=== PATIENT | female | born 1970 | race Caucasian/White ===

== ENCOUNTER → 2017-03-22 | Outpatient (REF) | payer BC ==
[~2017-03-22] MED LIST: CATA0.1T OR; FENT1DIS14 TD; FENT1DIS34 TD; IBUP-1114 PO; LITH600C OR; MILKSUS PO; MIRA3350 PO; MULT1TAB18 PO; OMEP40CA2 PO; OXYC-517 PO; TAKES NO MEDS; TRAZ50TA OR
== END ==
LOC: M LAB REF 16:24
PROVIDERS: ATTEND Internal Medicine Medical Oncology
DX: C18.9 Malignant neoplasm of colon, unspecified (principal)

== ENCOUNTER → 2017-03-22 | Outpatient (CLI) | payer BC ==
[~2017-03-22] VITALS: Ht 167.6 cm; Wt 85.3 kg
[~2017-03-22] MED LIST changes: -FENT1DIS34 TD; +LIDOCAINE 2% INJ 100 MG/5 ML SDV (FOR ANES.) As Ordered ONE; +LR 1,000 ML IV SCH; -MILKSUS PO; -MIRA3350 PO; -OMEP40CA2 PO; -OXYC-517 PO; +PROPOFOL 200 MG/20 ML VIAL As Ordered ONE; +fentaNYL 100 MCG/2 ML INJECTION (J3010) As Ordered ONE
--- NOTE | 2017-03-22 16:33 | ROOR ---
Patient Name: Arash Cheng Procedure Date: 03/22/2017 3:26 PM Date of : 1970 Age: 46 Room: [facility] Gender: Female Note Status: Finalized Procedure: Upper GI endoscopy Indications: Dysphagia Providers: Pb Proctor MD Referring MD: REGINA TORREZ, RHEA RAMOS MD Requesting Provider: Medicines: Monitored Anesthesia Care Complications: No immediate complications. Procedure: Pre-Anesthesia Assessment: - Prior to the procedure, a History and Physical was performed, and patient medications and allergies were reviewed. The patient is competent. The risks and benefits of the procedure and the sedation options and risks were discussed with the patient. All questions were answered and informed consent was obtained. Patient identification and proposed procedure were verified by the physician, the nurse and the professor of marketing in the procedure room. Mental Status Examination: alert and oriented. Airway Examination: normal oropharyngeal airway and neck mobility. CV Examination: regular rate and rhythm. Prophylactic Antibiotics: The patient does not require prophylactic antibiotics. Prior Anticoagulants: The patient has taken no previous anticoagulant or antiplatelet agents. ASA Grade Assessment: II - A patient with mild systemic disease. After reviewing the risks and benefits, the patient was deemed in satisfactory condition to undergo the procedure. The anesthesia plan was to use monitored anesthesia care (MAC). Immediately prior to administration of medications, the patient was re-assessed for adequacy to receive sedatives. The heart rate, respiratory rate, oxygen saturations, blood pressure, adequacy of pulmonary ventilation, and response to care were monitored throughout the procedure. The physical status of the patient was re-assessed after the procedure. The Endoscope was introduced through the mouth, and advanced to the second part of duodenum. The upper GI endoscopy was accomplished without difficulty. The patient tolerated the procedure well. Findings: The examined esophagus was normal. The entire examined stomach was normal. The examined duodenum was normal. Impression: - Normal esophagus. - Normal stomach. - Normal examined duodenum. - No specimens collected. Recommendation: - Discharge patient to home. - Resume previous diet. - Continue present medications. - Return to endoscopist at appointment to be scheduled. Pb Proctor MD 03/22/2017 4:32:50 PM Number of Addenda: 0 Note Initiated On: 03/22/2017 3:26 PM Estimated Blood Loss: Estimated blood loss: none.
--- NOTE | 2017-03-22 16:51 | ROOR ---
Patient Name: Arash Cheng Procedure Date: 03/22/2017 3:27 PM Date of : 1970 Age: 46 Room: [facility] Gender: Female Note Status: Finalized Procedure: Colonoscopy Indications: Abnormal CT of the GI tract, On CT pt has a malignant appearing fusion of her descending colon and the left kidney. Providers: Pb Proctor MD Referring MD: REGINA TORREZ, RHEA RAMOS MD Requesting Provider: Medicines: Monitored Anesthesia Care Complications: No immediate complications. Procedure: Pre-Anesthesia Assessment: - Prior to the procedure, a History and Physical was performed, and patient medications and allergies were reviewed. The patient is competent. The risks and benefits of the procedure and the sedation options and risks were discussed with the patient. All questions were answered and informed consent was obtained. Patient identification and proposed procedure were verified by the physician, the nurse and the idea man in the procedure room. Mental Status Examination: alert and oriented. Airway Examination: normal oropharyngeal airway and neck mobility. CV Examination: regular rate and rhythm. Prophylactic Antibiotics: The patient does not require prophylactic antibiotics. Prior Anticoagulants: The patient has taken no previous anticoagulant or antiplatelet agents. ASA Grade Assessment: II - A patient with mild systemic disease. After reviewing the risks and benefits, the patient was deemed in satisfactory condition to undergo the procedure. The anesthesia plan was to use monitored anesthesia care (MAC). Immediately prior to administration of medications, the patient was re-assessed for adequacy to receive sedatives. The heart rate, respiratory rate, oxygen saturations, blood pressure, adequacy of pulmonary ventilation, and response to care were monitored throughout the procedure. The physical status of the patient was re-assessed after the procedure. The Colonoscope [id number] #[id number] was introduced through the anus with the intention of advancing to the cecum. The scope was advanced to the descending colon before the procedure was aborted. Medications were given. The colonoscopy was somewhat difficult due to restricted mobility of the colon and a tortuous colon. The patient tolerated the procedure well. The quality of the bowel preparation was good. Findings: The perianal and digital rectal examinations were normal. A Malignant appearing severe stenosis measuring of unknown length was found in the descending colon and was non-traversed. Biopsies were taken with a cold forceps for histology. With passage of the biopsy forceps through the stricture this would open slightly and a cavity lined by necrotic or malignant tissue was noted beyond. Impression: - Stricture in the descending colon. Biopsied. Recommendation: - Discharge patient to home. - Resume previous diet. - Await pathology results. Pb Proctor MD 03/22/2017 4:50:50 PM Number of Addenda: 0 Note Initiated On: 03/22/2017 3:27 PM Estimated Blood Loss: Estimated blood loss was minimal.
[2017-03-22 17:20] VITALS: BP 135/67
[2017-03-22 18:11] LABS: BASO % 0.3 % (0.0-1.0); EOS # 0.1 K/mm3 (0.0-0.50); LARGE UNSTAINED CELL # 0.2 K/mm3 (0.0-0.4); LARGE UNSTAINED CELL % 2.6 % (0.0-4.0); LYMPH # 1.8 K/mm3 (1.5-4.5); LYMPH % 19.9 % (24.0-44.0); MEAN CORPUSCULAR HEMOGLOBIN 18.8 pg (27.0-33.0); MEAN CORPUSCULAR HGB CONC 28.6 g/dl (32.0-36.5); MEAN CORPUSCULAR VOLUME 65.6 fl (80.0-96.0); MONO # 0.4 K/mm3 (0.0-0.8); NEUTROPHILS # 5.7 K/mm3 (1.8-7.7); NEUTROPHILS % 71.2 % (36.0-66.0); PLATELET COUNT, AUTOMATED 530 k/mm3 (150-450); RED CELL DISTRIBUTION WIDTH 17.2 % (11.5-14.5); WHITE BLOOD COUNT 7.9 K/mm3 (4.0-10.0)
[2017-03-22 18:12] LABS: ALBUMIN 2.9 GM/DL (3.2-5.2); ALBUMIN/GLOBULIN RATIO 0.64 (1.00-1.93); ALKALINE PHOSPHATASE 69 U/L (45-117); ALT/SGPT 8 U/L (12-78); ANION GAP 7 MEQ/L (8-16); AST/SGOT 7 U/L (15-37); BILIRUBIN,TOTAL 0.3 MG/DL (0.2-1.0); BLOOD UREA NITROGEN 9 MG/DL (7-18); CALCIUM LEVEL 8.5 MG/DL (8.5-10.1); CARBON DIOXIDE LEVEL 26 MEQ/L (21-32); CHLORIDE LEVEL 107 MEQ/L (98-107); CREATININE FOR GFR 0.66 MG/DL (0.55-1.02); GLOMERULAR FILTRATION RATE > 60.0 (>58); GLUCOSE, FASTING 88 MG/DL (70-105); POTASSIUM SERUM 3.9 MEQ/L (3.5-5.1); SODIUM LEVEL 140 MEQ/L (136-145); TOTAL PROTEIN 7.4 GM/DL (6.4-8.2)
[2017-03-22 18:19] LABS: CARCINOEMBRYONIC ANTIGEN 9.4 NG/ML (<2.5)
[2017-03-22 18:27] LABS: ERYTHROCYTE SEDIMENTATION RATE 78 mm/hr (0-20)
[2017-03-22 18:28] LABS: ADD MORPHOLOGY? YES
[2017-03-22 18:39] LABS: HYPOCHROMASIA 2+
[2017-03-22 18:40] LABS: ANISOCYTOSIS 1+; MICROCYTOSIS 2+
== END ==
LOC: M OPP 13:58
PROVIDERS: ATTEND Surgery
DX: R93.3 Abnormal findings on diagnostic imaging of other parts of digestive tract (principal); K56.69 Other intestinal obstruction; C18.6 Malignant neoplasm of descending colon; Q43.8 Other specified congenital malformations of intestine; R13.10 Dysphagia, unspecified; R93.422 Abnormal radiologic findings on diagnostic imaging of left kidney; F17.200 Nicotine dependence, unspecified, uncomplicated; R10.9 Unspecified abdominal pain; Z79.899 Other long term (current) drug therapy
CPT/HCPCS: 36415; 43235; 45380; 80053; 82378; 85025; 85652; 86140; 88305; 99156; 99157; J3010

== ENCOUNTER → 2017-04-21 | Outpatient (REF) | payer BC ==
[~2017-04-21] MED LIST changes: +FENT1DIS34 TD; -LIDOCAINE 2% INJ 100 MG/5 ML SDV (FOR ANES.) As Ordered ONE; -LR 1,000 ML IV SCH; +MILKSUS PO; +MIRA3350 PO; +OMEP40CA2 PO; +OXYC-517 PO; +PROC10TA PO; -PROPOFOL 200 MG/20 ML VIAL As Ordered ONE; +ZOFR20TA PO; -fentaNYL 100 MCG/2 ML INJECTION (J3010) As Ordered ONE
== END ==
LOC: M LAB REF 12:00
PROVIDERS: ATTEND Internal Medicine Medical Oncology
DX: C18.9 Malignant neoplasm of colon, unspecified (principal)

== ENCOUNTER → 2017-04-26 | Day surgery (SDC) | payer BC ==
[~2017-04-26] VITALS: Ht 168.9 cm; Wt 81.6 kg
[~2017-04-26] MED LIST changes: +HEPARIN SOD (PORCINE) 5000 UNITS/ML VIAL As Ordered ONE; +LIDOCAINE 1% SDV INJ 30 ML VIAL As Ordered ONE; +LIDOCAINE 2% INJ 100 MG/5 ML SDV (FOR ANES.) As Ordered ONE; +LR 1,000 ML IV ONE; +LR 1,000 ML IV SCH; +MIDAZOLAM INJ 2 MG/2 ML VIAL (J2250) As Ordered ONE; +ONDANSETRON 4MG/2ML VIAL (J2405) As Ordered ONE; -PROC10TA PO; +PROPOFOL 200 MG/20 ML VIAL As Ordered ONE; -ZOFR20TA PO; +fentaNYL 100 MCG/2 ML INJECTION (J3010) As Ordered ONE
[2017-04-26 16:10] VITALS: BP 117/67
--- NOTE | 2017-04-26 17:05 | REP ---
C-ARM VIEW OF THE CHEST: A single C-Arm view of the chest is performed during placement of an Ihjmem-J-Bgob. The tip of the Ofqqvn-G-Ffzn appears to be at the junction of the superior vena cava and right atrium. 9 seconds of fluoroscopy time utilized. Signed by Renzo Navas MD 04/27/2017 07:40 P
--- NOTE | 2017-04-27 19:48 | RO ---
DATE OF PROCEDURE: 04/26/2017 PREOPERATIVE DIAGNOSIS: Stage IV colon cancer for chemotherapy. POSTOPERATIVE DIAGNOSIS: Stage IV colon cancer for chemotherapy. PROCEDURE PERFORMED: Implantation right internal jugular vein Bard port Nvpbll-N-Fjgo with ultrasound and fluoroscopic. The port placed was a Bard port, product code number [id number] and the lot number was [id number]. SURGEON: Pb Proctor MD ANESTHESIA: Local of 1% Xylocaine with monitored anesthesia care. 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 She was noted to have significant adenopathy in the para-aortic area and even up into the mediastinum. She was not felt to be a surgical candidate and chemotherapy was recommended. She is now for placement of an Cdmlcu-G-Kmnp. DESCRIPTION OF PROCEDURE: The patient was placed supine on the operating table. The patient's right neck and upper chest were prepped and draped in a sterile fashion. Several small skin studs along the midline were covered with small OpSites. The patient was placed in a Trendelenburg position. Examination of the right neck was performed with the [facility] ultrasound and the large internal jugular vein was identified. The site was marked and local anesthesia was achieved with 1% Xylocaine. She received sedation from anesthesia. Using ultrasound guidance an 18 gauge needle was inserted through the skin and into the vein without difficulty. There was excellent blood return. The guidewire was passed. The skin was nicked at the wire entry site and the peel-away sheath introducer was passed. The Hcfcna-X-Mhuj catheter was then inserted through the sheath to approximately 30 cm and the sheath was withdrawn. The catheter flushed readily with heparinized saline and blood aspirated readily. The catheter was pulled back to approximately 20 cm and then further back to about 17. The patient was returned to a flat position. Fluoroscopy was performed and the catheter was withdrawn to approximately 14 cm at the skin surface at the neck incision, which appeared to place the tip just about at the juncture of the superior vena cava and the right atrium. Additional local anesthesia was then created in the infraclavicular fossa and an approximately 2-1/2 to 3 cm transverse skin incision was made. A subcutaneous pocket was created to receive the port. Hemostasis was ensured with the electrocautery. The catheter was tunneled down to the port site and the catheter was then cut to length and attached to the port, which had previously been flushed with heparinized saline. The port was placed into the subcutaneous pocket and two #3-0 Vicryl sutures were placed to fix the corners. The skin was approximated with buried sutures of #3-0 Vicryl. The two skin incisions were closed with buried #5-0 Vicryl and Steri-Strips. The port was accessed the final time. Blood aspirated easily and the port was then flushed with 100 units/mL heparin solution. Small OpSites were applied to the two incisions. The patient tolerated the procedure well without apparent complication. She was allowed to awaken and was transported to advanced recovery in stable condition. YAO
== END ==
LOC: M SDC 11:26
PROVIDERS: ATTEND Surgery
DX: C18.6 Malignant neoplasm of descending colon (principal); C79.02 Secondary malignant neoplasm of left kidney and renal pelvis; K59.00 Constipation, unspecified; F17.210 Nicotine dependence, cigarettes, uncomplicated; Z79.899 Other long term (current) drug therapy
CPT/HCPCS: 36561; 76000; C1788; J0690; J2250; J2405; J3010

== ENCOUNTER → 2017-04-27 | Outpatient (CLI) | payer BC ==
[~2017-04-27] MED LIST changes: -HEPARIN SOD (PORCINE) 5000 UNITS/ML VIAL As Ordered ONE; -LIDOCAINE 1% SDV INJ 30 ML VIAL As Ordered ONE; -LIDOCAINE 2% INJ 100 MG/5 ML SDV (FOR ANES.) As Ordered ONE; -LR 1,000 ML IV ONE; -LR 1,000 ML IV SCH; -MIDAZOLAM INJ 2 MG/2 ML VIAL (J2250) As Ordered ONE; -ONDANSETRON 4MG/2ML VIAL (J2405) As Ordered ONE; -PROPOFOL 200 MG/20 ML VIAL As Ordered ONE; -fentaNYL 100 MCG/2 ML INJECTION (J3010) As Ordered ONE
--- NOTE | 2017-04-28 20:22 | REP ---
Whole body PET CT scan: Comparison is the CT of the abdomen and pelvis dated 03/14/2017. Scanning is performed from skull base to the upper thighs. Neck and supraclavicular areas: There is bilaterally symmetric artifactual uptake in the vocal cords. There are no other hypermetabolic foci. Chest: There are no hypermetabolic foci. Specifically there are no mediastinal or hilar foci. Abdomen, pelvis and upper thighs: There is a large mass in the abdomen/retroperitoneum on the left displacing the left kidney medially. There are multifocal zones of hypermetabolic uptake within this mass with the standard uptake value of 11.45. Along the inferomedial margin of this mass is a focus of hypermetabolic uptake measuring approximately 1.5 cm in diameter with a standard uptake value of 18.0. Radio labeling of the left ureter can be seen just posterior to this hypermetabolic focus. This focus could a retroperitoneal node versus direct extension from the adjacent mass. . There are no other hypermetabolic foci. Impression: There are no hypermetabolic foci in the chest, specifically no foci in the mediastinum or della. There are no hypermetabolic foci in the abdomen related to the patient's known abdominal mass. Additionally there is a hypermetabolic focus along the inferomedial margin of this mass, retroperitoneal node versus direct extension from the mass. No other hypermetabolic foci are identified. The studies performed with 10 mCi of F 18 F D G . Signed by Renzo Hughes MD 04/28/2017 08:13 P
== END ==
LOC: M PLARAD 07:25
PROVIDERS: ATTEND Internal Medicine Medical Oncology
DX: C18.6 Malignant neoplasm of descending colon (principal)
CPT/HCPCS: 78815; A9552

== ENCOUNTER → 2017-05-04 | Outpatient (REF) | payer BC ==
[~2017-05-04] MED LIST changes: +PROC10TA PO; +ZOFR20TA PO
== END ==
LOC: M LAB REF 12:59
PROVIDERS: ATTEND Internal Medicine Medical Oncology
DX: C18.9 Malignant neoplasm of colon, unspecified (principal)

== ENCOUNTER → 2017-05-09 | Outpatient (REF) | payer BC ==
[~2017-05-09] MED LIST changes: +NUCY100T3 PO; +PRED10TA2 PO
== END ==
LOC: M LAB REF 09:51
PROVIDERS: ATTEND Internal Medicine Medical Oncology
DX: C18.9 Malignant neoplasm of colon, unspecified (principal); D50.9 Iron deficiency anemia, unspecified

== ENCOUNTER 2017-05-10 09:27 | Outpatient (CLI) | payer BC ==
[~2017-05-10] VITALS: Ht 147.3 cm; Wt 63.0 kg
[~2017-05-10 09:27] MED LIST changes: +ACETAMINOPHEN TAB 650MG DOSE (2X325MG) PO ONE; -NUCY100T3 PO; -PRED10TA2 PO; -PROC10TA PO; +SODIUM CHLORIDE 0.9% INJ 10 ML SYR IV PRN; +SODIUM CHLORIDE 0.9% INJ 10 ML SYR IV SCH; -ZOFR20TA PO; +diphenhydrAMINE 50 MG CAP PO ONE
[2017-05-10] MEDS ORDERED: PROC10TA PO (11:24)
[2017-05-10] MEDS ORDERED: ZOFR20TA PO (11:25)
[2017-09-05] MEDS ORDERED: NUCY100T3 PO (08:28)
[2017-09-05] MEDS ORDERED: PRED10TA2 PO (10:09)
== END 2017-05-10 14:30 | disposition home or self-care (01) ==
LOC: M INFU 09:27
PROVIDERS: ATTEND Internal Medicine Medical Oncology
DX: D50.9 Iron deficiency anemia, unspecified (principal)
CPT/HCPCS: 36430; P9016

== ENCOUNTER → 2017-05-18 | Outpatient (REF) | payer BC ==
[~2017-05-18] MED LIST changes: -ACETAMINOPHEN TAB 650MG DOSE (2X325MG) PO ONE; +NUCY100T3 PO; +PRED10TA2 PO; +PROC10TA PO; -SODIUM CHLORIDE 0.9% INJ 10 ML SYR IV PRN; -SODIUM CHLORIDE 0.9% INJ 10 ML SYR IV SCH; +ZOFR20TA PO; -diphenhydrAMINE 50 MG CAP PO ONE
== END ==
LOC: M LAB REF 12:37
PROVIDERS: ATTEND Internal Medicine Medical Oncology
DX: C18.9 Malignant neoplasm of colon, unspecified (principal)

== ENCOUNTER → 2017-06-01 | Outpatient (REF) | payer BC | LOC: M LAB REF 13:42 | PROVIDERS: ATTEND Internal Medicine Medical Oncology | DX: C18.9 Malignant neoplasm of colon, unspecified (principal) ==

== ENCOUNTER 2018-09-11 11:17 | Emergency (ER) | payer OTHER, BC | END 2018-09-11 13:38 | disposition home or self-care (01) | LOC: M ED 11:17 | DX: S83.411A Sprain of medial collateral ligament of right knee, initial encounter (principal); W18.40XA Slipping, tripping and stumbling without falling, unspecified, initial encounter; Y92.9 Unspecified place or not applicable; Y93.89 Activity, other specified; Y99.9 Unspecified external cause status; M76.891 Other specified enthesopathies of right lower limb, excluding foot; I10 Essential (primary) hypertension; Z72.0 Tobacco use; Z85.038 Personal history of other malignant neoplasm of large intestine; Z88.8 Allergy status to other drugs, medicaments and biological substances | CPT/HCPCS: 73564 ==

== ENCOUNTER → 2020-12-20 | Outpatient (CLI) | payer OTHER, BC ==
[~2020-12-20] MED LIST changes: +MILK120011 PO; -MILKSUS PO; +NUCY100T16 PO; -NUCY100T3 PO; -OMEP40CA2 PO; +OMEP40CA97 PO; -PROC10TA PO; +PROC10TA4 PO; -ZOFR20TA PO; +ZOFR4TAB16 PO
== END ==
LOC: M LABSMTC 11:05
PROVIDERS: ATTEND Anesthesiology
DX: Z01.812 Encounter for preprocedural laboratory examination (principal); Z20.822 Contact with and (suspected) exposure to COVID-19

== ENCOUNTER 2020-12-25 10:11 | Day surgery (SDC) | payer BC ==
[~2020-12-25] VITALS: Ht 170.2 cm; Wt 114.3 kg
[~2020-12-25 10:11] MED LIST changes: +NS 1,000 ML IV ONE
--- OUTSIDE RECORDS SUMMARY | 2020-12-25 10:17 | CCD | Continuity of Care Document ---
Author Author Arash [facility] Organization Unknown Address [address] [place] [address] [place] [address] Phone [phone] Care Team Providers Care Lace Burn Out Tender Name Role Phone [employer]y [employer] AUTM [phone] Problems Description No Information Available Social History Type Date Description Comments Sex Unknown ETOH Use Occasionally consumes alcohol Tobacco Use Start: Unknown Patient is a current smoker, smo kes every day Tobacco Use Start: Unknown Heavy tobacco smoker (more than 10 cigarettes/day) Smoking Status Reviewed: 11/12/20 Heavy tobacco smoker (more than 10 cigarettes/day) Allergies, Adverse Reactions, Alerts Active Allergies Reaction Severity Comments Date Bee Sting 02/07/2020 Chemo 12/04/2020 Medications Active Medications SIG Qnty Indications Ordering Provide r Date No Active Medications Unknown History Medications Albuterol Sulfate HFA 108(90Base) mcg/Act Aerosol 2 puffs every 6 hours as needed for wheeze and cough 8.500gm Alberto Law JR., M.D. 08/26/2020 - 01/02/2019 Prednisone 20mg Tablets 1 tabs three x daily for 5 days 15tabs Alberto Law JR., M.D. - 08/31/2020 Benzonatate 100mg Capsules 1 by mouth every 8 hours as needed cough 30caps Alberto Law JR., M.D. 08/26/2020 - 07/02/2019 Doxycycline Hyclate 100mg Capsules 1 twice a day x 7 days, take with food 14caps J20.9 Alberto thakkar JR., M.D. 08/26/2020 - 07/03/2019 Immunizations Description No Information Available Vital Signs Date Vital Result Comment 12/04/2020 8:49am BP Systolic 145 mmHg BP Diastolic 70 mmHg Heart Rate 78 /min Respiratory Rate 16 /min O2 % BldC Oximetry 99 % Body Temperature 98.7 F Weight 245.00 lb Height 66 inches 5'6" BMI (Body Mass Index) 39.5 kg/m2 Pain Level 1 11/12/2020 11:33am BP Systolic 160 mmHg BP Diastolic 90 mmHg Heart Rate 78 /min Respiratory Rate 18 /min O2 % BldC Oximetry 97 % Body Temperature 98.7 F Weight 245.00 lb Height 66 inches 5'6" BMI (Body Mass Index) 39.5 kg/m2 Pain Level 3 Results Description No Information Available Procedures Description No Information Available Medical Devices Description No Information Available Encounters Type Date Location Provider Dx Diagnosis Office Visit 12/04/2020 8:15a [facility] Darian Sifuentes P J00 Acute nasopharyngitis [common cold] Z20.828 Contact w and exposure to ot h viral communicable diseases Office Visit 11/12/2020 11:30a Main Office REGINA Mobley J06.9 Acute upper respiratory infection, unspecified Z72.0 Tobacco use Z20.828 Contact w and exposure to ot h viral communicable diseases Office Visit 08/26/2020 2:35p [facility] REGINA Mobley J30.9 Allergic rhinitis, unspecified J20.9 Acute bronchitis, unspecifie d Z72.0 Tobacco use Office Visit 07/30/2020 12:30p [facility] REGINA Figueroa H57.12 Ocular pain, left eye Assessments Date Code Description Provider 12/04/2020 J00 Acute nasopharyngitis [common co ld] Daniela Mckinney NP 12/04/2020 Z20.828 Contact with and (nur spected) exposure to other viral communicable diseases Daniela Mckinney NP 11/12/2020 J06.9 Acute upper respiratory infectio n, unspecified REGINA Mobley 11/12/2020 Z72.0 Tobacco use REGINA Mobley 11/12/2020 Z20.828 Contact with and (nur spected) exposure to other viral communicable diseases REGINA Mobley 08/26/2020 J30.9 Allergic rhinitis, unspecified J REGINA Moore 08/26/2020 J20.9 Acute bronchitis, unspecified Ja REGINA Crum 08/26/2020 Z72.0 Tobacco use REGINA Mobley 07/30/2020 H57.12 Ocular pain, left eye REGINA Figueroa Plan of Treatment No Information Available Functional Status Description No Information Available Mental Status Description No Information Available Referrals Description No Information Available
--- OUTSIDE RECORDS SUMMARY | 2020-12-25 10:17 | CCD | Continuity of Care Document ---
Author Author Arash VENEGAS Organization Unknown Address [address] [place] [address] [place] [address] Phone [phone] Care Team Providers Care Ordnance Equipment Worker Name Role Phone [employer]y [employer] AUTM [phone] Problems Description No Information Available Social History [...] Reaction Severity Comments Date Bee Sting 02/07/2020 Medications Active Medications SIG Qnty Indications Ordering [...] Available Vital Signs Date Vital Result Comment 11/12/2020 11:33am BP Systolic 160 mmHg BP Diastolic 90 mmHg Heart Rate 78 /min Respiratory Rate 18 /min O2 % BldC Oximetry 97 % Body Temperature 98.7 F Weight 245.00 lb Height 66 inches 5'6" BMI (Body Mass Index) 39.5 kg/m2 Pain Level 3 08/26/2020 1:54pm BP Systolic 130 mmHg BP Diastolic 78 mmHg Heart Rate 97 /min Respiratory Rate 20 /min O2 % BldC Oximetry 99 % Body Temperature 98.7 F Weight 245.00 lb Height 66 inches 5'6" BMI (Body Mass Index) 39.5 kg/m2 Pain Level 3 Results Description No Information Available Procedures Description No Information Available Medical Devices Description No Information Available Encounters Type Date Location Provider Dx Diagnosis Office Visit 11/12/2020 11:30a Main Office REGINA Mobley J06.9 Acute upper respiratory infection, unspecified Z72.0 Tobacco use Z20.828 Contact w and exposure to ot h viral communicable diseases Office Visit 08/26/2020 2:35p [facility] REGINA Mobley J30.9 Allergic rhinitis, unspecified J20.9 Acute bronchitis, unspecifie d Z72.0 Tobacco use Office Visit 07/30/2020 12:30p [facility] REGINA Figueroa H57.12 Ocular pain, left eye Assessments Date Code Description Provider 11/12/2020 J06.9 Acute upper respiratory infectio n, unspecified REGINA Mobley 11/12/2020 Z72.0 Tobacco use REGINA Mobley 11/12/2020 Z20.828 Contact with and (nur spected) exposure to other viral communicable diseases REGINA Mobley 08/26/2020 J30.9 Allergic rhinitis, unspecified J REGINA Moore 08/26/2020 J20.9 Acute bronchitis, unspecified REGINA Brink 08/26/2020 Z72.0 Tobacco use REGINA Mobley 07/30/2020 H57.12 Ocular pain, left eye REGINA Figueroa Plan of Treatment No Information Available Functional Status Description No Information Available Mental Status Description No Information Available Referrals Description No Information Available
--- OUTSIDE RECORDS SUMMARY | 2020-12-25 10:17 | CCD | Continuity of Care Document ---
Author Author Arash OLIVERA M.D. Organization Unknown Address [address] [facility], [address] [place] [address] Phone [phone] Care Team Providers Care Vice President Payer Name Role Phone Marcus Sanon M.D. AUTM [phone] AUTM Unavailable No PCP AUTM Unavailable Problems Description No Information Available Social History Type Date Description Comments Sex Unknown ETOH Use Occasionally consumes alcohol Recreational Drug Use Denies Drug Use Tobacco Use Start: Unknown Patient is a current smoker, smo kes every day 1 PPD FOR 25 YEARS Allergies, Adverse Reactions, Alerts Active Allergies Reaction Severity Comments Date Oxaliplatin ANAPHLALAXIS 02/07/2019 Adhesives Contact dermatitis 9 Inactive Allergies NKDA 03/21/2017 Medications Description No Active Medications Immunizations Description No Information Available Vital Signs Date Vital Result Comment 12/15/2020 2:29pm BP Systolic 132 mmHg BP Diastolic 70 mmHg Height 67.5 inches 5'7.50" Weight 260.38 lb BMI (Body Mass Index) 40.2 kg/m2 [place] Body Weight 135 lb Weight 118.106 kg BSA (Body Surface Area) 2.27 m2 02/14/2019 9:33am BP Systolic 132 mmHg LA BP Diastolic 96 mmHg LA Height 67.5 inches 5'7.50" Weight 234.00 lb BMI (Body Mass Index) 36.1 kg/m2 [place] Body Weight 135 lb Weight 106.142 kg BSA (Body Surface Area) 2.17 m2 Results Description No Information Available Procedures Description No Information Available Medical Devices Description No Information Available Encounters Description No Information Available Assessments Description No Information Available Plan of Treatment 02/14/2019 - Ismael Veras NP* Z48.02 Encounter for removal of sutures* Comments:* Sutures removed, patient tolerated well. Keep area clean and dry.Gentle cleansing with mild soap and pat dry. Follow up as needed. Functional Status Description No Information Available Mental Status Description No Information Available Referrals Refer to Reason for Referral Status Appt Date Pb Olivera M.D. EGD Created 10/29/2020 [facility] [address] [place] [phone]
--- OUTSIDE RECORDS SUMMARY | 2020-12-25 10:17 | CCD | Continuity of Care Document ---
Author Author Arash VENEGAS Organization Unknown Address [address] [place] [address] [place] [address] Phone [phone] Care Team Providers Care Residential Child Care Counselor Name Role Phone [employer]y [employer] AUTM [phone] Problems Description No Information Available Social History [...]
--- OUTSIDE RECORDS SUMMARY | 2020-12-25 10:17 | CCD | Continuity of Care Document ---
Author Author Arash [facility] REP Organization Unknown Address [address] [place] [address] [place] [address] Phone [phone] Care Team Providers Care Requirements Engineer Name Role Phone Corey [employer] AUTM [phone] Problems Description No Information Available Social History [...]
--- OUTSIDE RECORDS SUMMARY | 2020-12-25 10:18 | CCD ---
Author Author [facility] Organization [facility] Address Unknown Phone Unavailable Care Team Providers Care Forepart Reducer Name Role Phone Margaret Tamayo Unavailable Unavailable Margaret Tamayo Unavailable Unavailable Margaret Tamayo Unavailable Unavailable Margaret Tamayo Unavailable Unavailable Margaret Tamayo Unavailable Unavailable Margaret Tamayo Unavailable Unavailable Margaret Tamayo Unavailable Unavailable Margaret Tamayo Unavailable Unavailable Margaret Tamayo Unavailable Unavailable Margaret Tamayo Unavailable Unavailable Kraeger, R Amy PA Unavailable Unavailable Kraeger, R Amy PA Unavailable Unavailable Kraeger, R Amy PA Unavailable Unavailable Kraeger, R Amy PA Unavailable Unavailable Kraeger, R Amy PA Unavailable Unavailable Kraeger, R Amy PA Unavailable Unavailable Kraeger, R Amy PA Unavailable Unavailable Kraeger, R Amy PA Unavailable Unavailable Kraeger, R Amy PA Unavailable Unavailable Kraeger, R Amy PA Unavailable Unavailable Kraeger, R Amy PA Unavailable Unavailable Kraeger, R Amy PA Unavailable Unavailable Kraeger, R Amy PA Unavailable Unavailable Kraeger, R Amy PA Unavailable Unavailable Kraeger, R Amy PA Unavailable Unavailable Kraeger, R Amy PA Unavailable Unavailable Kraeger, R Amy PA Unavailable Unavailable Kraeger, R Amy PA Unavailable Unavailable Kraeger, R Amy PA Unavailable Unavailable Kraeger, R Amy PA Unavailable Unavailable Kraeger, R Amy PA Unavailable Unavailable Kraeger, R Amy PA Unavailable Unavailable Kraeger, R Amy PA Unavailable Unavailable Kraeger, R Amy PA Unavailable Unavailable Kraeger, R Amy PA Unavailable Unavailable Kraeger, R Amy PA Unavailable Unavailable Kraeger, R Amy PA Unavailable Unavailable Kraeger, R Amy PA Unavailable Unavailable Kraeger, R Amy PA Unavailable Unavailable Kraeger, R Amy PA Unavailable Unavailable Kraeger, R Amy PA Unavailable Unavailable Kraeger, R Amy PA Unavailable Unavailable Kraeger, R Amy PA Unavailable Unavailable Kraeger, R Amy PA Unavailable Unavailable Kraeger, R Amy PA Unavailable Unavailable Kraeger, R Amy PA Unavailable Unavailable Kraeger, R Amy PA Unavailable Unavailable Kraeger, R Amy PA Unavailable Unavailable Kraeger, R Amy PA Unavailable Unavailable Kraeger, R Amy PA Unavailable Unavailable Kraeger, R Amy PA Unavailable Unavailable DARRYL PRADO MD Unavailable Unavailable DARRYL PRADO MD Unavailable Unavailable DARRYL PRADO MD Unavailable Unavailable DARRYL PRADO MD Unavailable Unavailable DARRYL PRADO MD Unavailable Unavailable DARRYL PRADO MD Unavailable Unavailable JOHAN, DARRYL CRUZ MD Unavailable Unavailable JOHAN, DARRYL CRUZ MD Unavailable Unavailable JOHAN, DARRYL CRUZ MD Unavailable Unavailable JOHAN, DARRYL CRUZ MD Unavailable Unavailable JOHAN, DARRYL CRUZ MD Unavailable Unavailable JOHAN, DARRYL CRUZ MD Unavailable Unavailable JOHAN, DARRYL CRUZ MD Unavailable Unavailable JOHAN, DARRYL CRUZ MD Unavailable Unavailable JOHAN, DARRYL CRUZ MD Unavailable Unavailable JOHAN, DARRYL CRUZ MD Unavailable Unavailable JOHAN, DARRYL CRUZ MD Unavailable Unavailable JOHAN, DARRYL CRUZ MD Unavailable Unavailable JOHAN, DARRYL CRUZ MD Unavailable Unavailable JOHAN, DARRYL CRUZ MD Unavailable Unavailable JOHAN, DARRYL CRUZ MD Unavailable Unavailable JOHAN, DARRYL CRUZ MD Unavailable Unavailable JOHAN, DARRYL CRUZ MD Unavailable Unavailable JOHAN, DARRYL CRUZ MD Unavailable Unavailable JOHAN, DARRYL CRUZ MD Unavailable Unavailable JOHAN, DARRYL CRUZ MD Unavailable Unavailable JOHAN, DARRYL CRUZ MD Unavailable Unavailable JOHAN, DARRYL CRUZ MD Unavailable Unavailable JOHAN, DARRYL CRUZ MD Unavailable Unavailable JOHAN, DARRYL CRUZ MD Unavailable Unavailable JOHAN, DARRYL CRUZ MD Unavailable Unavailable JOHAN, DARRYL CRUZ MD Unavailable Unavailable JOHAN, DARRYL CRUZ MD Unavailable Unavailable JOHAN, DARRYL CRUZ MD Unavailable Unavailable JOHAN, DARRYL CRUZ MD Unavailable Unavailable JOHAN, DARRYL CRUZ MD Unavailable Unavailable JOHAN, DARRYL CRUZ MD Unavailable Unavailable JOHAN, DARRYL CRUZ MD Unavailable Unavailable JOHAN, DARRYL CRUZ MD Unavailable Unavailable JOHAN, DARRYL CRUZ MD Unavailable Unavailable JOHANDARRYL MD Unavailable Unavailable JOHAN, DARRYL CRUZ MD Unavailable Unavailable JOHAN, DARRYL CRUZ MD Unavailable Unavailable JOHAN, DARRYL CRUZ MD Unavailable Unavailable JOHAN, DARRYL CRUZ MD Unavailable Unavailable JOHAN, DARRYL CRUZ MD Unavailable Unavailable JOHAN, DARRYL CRUZ MD Unavailable Unavailable JOHAN, DARRYL CRUZ MD Unavailable Unavailable JOHAN, DARRYL CRUZ MD Unavailable Unavailable JOHAN, DARRYL CRUZ MD Unavailable Unavailable JOHAN, DARRYL CRUZ MD Unavailable Unavailable JOHAN, DARRYL CRUZ MD Unavailable Unavailable JOHAN, DARRYL CRUZ MD Unavailable Unavailable JOHAN, DARRYL CRUZ MD Unavailable Unavailable JOHAN, DARRYL CRUZ MD Unavailable Unavailable JOHAN, DARRYL CRUZ MD Unavailable Unavailable JOHAN, DARRYL CRUZ MD Unavailable Unavailable JOHAN, DARRYL CRUZ MD Unavailable Unavailable JOHAN, DARRYL CRUZ MD Unavailable Unavailable JOHAN, DARRYL CRUZ MD Unavailable Unavailable JOHAN, DARRYL CRUZ MD Unavailable Unavailable JOHAN, DARRYL CRUZ MD Unavailable Unavailable JOHAN, DARRYL CRUZ MD Unavailable Unavailable JOHAN, DARRYL CRUZ MD Unavailable Unavailable JOHAN, DARRYL CRUZ MD Unavailable Unavailable JOHAN, DARRYL CRUZ MD Unavailable Unavailable JOHAN, DARRYL CRUZ MD Unavailable Unavailable JOHAN, DARRYL CRUZ MD Unavailable Unavailable JOHAN, DARRYL CRUZ MD Unavailable Unavailable JOHAN, DARRYL CRUZ MD Unavailable Unavailable JOHAN, DARRYL CRUZ MD Unavailable Unavailable JOHAN, DARRYL CRUZ MD Unavailable Unavailable JOHAN, DARRYL CRUZ MD Unavailable Unavailable RING, K ZULY PA Unavailable Unavailable RING, K ZULY PA Unavailable Unavailable RING, K ZULY PA Unavailable Unavailable RING, K ZULY PA Unavailable Unavailable RING, K ZULY PA Unavailable Unavailable RING, K ZULY PA Unavailable Unavailable RING, K ZULY PA Unavailable Unavailable RING, K ZULY PA Unavailable Unavailable RING, K ZULY PA Unavailable Unavailable RING, K ZULY PA Unavailable Unavailable RING, K ZULY PA Unavailable Unavailable RING, K ZULY PA Unavailable Unavailable RING, K ZULY PA Unavailable Unavailable RING, K ZULY PA Unavailable Unavailable RING, K ZULY PA Unavailable Unavailable RING, K ZULY PA Unavailable Unavailable RING, K ZUYL PA Unavailable Unavailable RING, K ZULY PA Unavailable Unavailable RING, K ZULY PA Unavailable Unavailable RING, K ZULY PA Unavailable Unavailable RING, K ZULY PA Unavailable Unavailable Flores, Daniela BREAD JOCKEY Unavailable Unavailable Flores, Daniela BREAD JOCKEY Unavailable Unavailable Flores, Daniela BREAD JOCKEY Unavailable Unavailable Flores, Daniela BREAD JOCKEY Unavailable Unavailable Flores, Daniela BREAD JOCKEY Unavailable Unavailable Flores, Daniela BREAD JOCKEY Unavailable Unavailable Flores, Daniela BREAD JOCKEY Unavailable Unavailable Flores, Daniela BREAD JOCKEY Unavailable Unavailable Flores, Daniela BREAD JOCKEY Unavailable Unavailable Flores, Daniela BREAD JOCKEY Unavailable Unavailable Flores, Daniela BREAD JOCKEY Unavailable Unavailable Ferraro, [place] Chrissie PA Unavailable Unavailable Ferraro, [place] Chrissie PA Unavailable Unavailable Ferraro, [place] Chrissie PA Unavailable Unavailable Ferraro, [place] Chrissie PA Unavailable Unavailable Ferraro, [place] Chrissie PA Unavailable Unavailable Ferraro, [place] Chrissie PA Unavailable Unavailable Ferraro, [place] Chrissie PA Unavailable Unavailable Ferraro, [place] Chrissie PA Unavailable Unavailable Ferraro, [place] Chrissie PA Unavailable Unavailable Ferraro, [place] Chrissie PA Unavailable Unavailable Re-disclosure Warning The records that you are about to access may contain information from federally-assisted alcohol or drug abuse programs. If such information is present, then the following federally mandated warning applies: This information has been disclosed to you from records protected by federal confidentiality rules (42 CFR part 2). The federal rules prohibit you from making any further disclosure of this information unless further disclosure is expressly permitted by the written consent of the person to whom it pertains or as otherwise permitted by 42 CFR part 2. A general authorization for the release of medical or other information is NOT sufficient for this purpose. The Federal rules restrict any use of the information to criminally investigate or prosecute any alcohol or drug abuse patient.The records that you are about to access may contain highly sensitive health information, the redisclosure of which is protected by Article 27-F of the [facility] Public Health law. If you continue you may have access to information: Regarding HIV / AIDS; Provided by facilities licensed or operated by the [facility] Office of Mental Health; or Provided by the [facility] Office for People With Developmental Disabilities. If such information is present, then the following [facility] mandated warning applies: This information has been disclosed to you from confidential records which are protected by state law. State law prohibits you from making any further disclosure of this information without the specific written consent of the person to whom it pertains, or as otherwise permitted by law. Any unauthorized further disclosure in violation of state law may result in a fine or penitentiary sentence or both. A general authorization for the release of medical or other information is NOT sufficient authorization for further disc losure. Family History Family Member Name Family Member Gender Family Member Status Date o f Status Description Data Source(s) Unknown Male Problem [facility] ([facility]) Unknown [facility] () Unknown Male Problem [facility] ([facility] () Encounters Encounter Providers Location Date Indications Data Source(s ) Outpatient Attender: Daniela woodruff 12/04/2020 07:15:00 AM EST [facility] ([facility]) Outpatient Attender: Chrissie diaz 11/12/2020 10:30:00 AM EST [facility] ([facility]) Outpatient Attender: NANCY PRADO MDReferrer: Chris TAPIA _[id number] 10/22/2020 12:40:40 PM EST [facility] Outpatient Attender: NANCY PRADO MDReferrer: Chris TAPIA _[id number] 10/22/2020 09:55:37 AM EST [facility] Outpatient Attender: NANCY PRADO MDReferrer: Chris TAPIA _[id number] 10/22/2020 09:18:05 AM EST [facility] Outpatient Attender: NANCY PRADO MDReferrer: Chris TAPIA _[id number] 10/21/2020 08:29:33 AM EST [facility] Outpatient Attender: NANCY PRADO MDReferrer: Chris TAPIA _[id number] 10/17/2020 06:23:49 AM EST [facility] Outpatient Attender: NANCY PRADO MDReferrer: Chris TAPIA [id number] 10/08/2020 01:12:31 PM EST [facility] Outpatient Attender: NANCY PRADO MD 09/02/2020 10:27:00 AM EDT [facility] Outpatient Attender: NANCY PRADO MDReferrer: Chris TAPIA _[id number] 08/31/2020 08:43:48 PM EDT [facility] Outpatient Attender: Chrissie Perdomo Prim joe 08/26/2020 02:35:00 PM EDT [facility] ([facility]) Outpatient Attender: NANCY PRADO MDReferrer: Chris TAPIA _[id number] 08/19/2020 03:01:34 PM EDT [facility] Outpatient Attender: NANCY ECHOLSeferrer: Chris TAPIA _[id number] 08/14/2020 02:25:23 PM EDT [facility] Outpatient Attender: ZULY Perdomo Primary 07/30/2020 12:30:00 PM EDT MED[facility] ([facility]) Outpatient Attender: ZULY Perdomo Primary 02/07/2020 12:00:00 PM EDT [facility] ([facility], [facility]) Medications Medication Brand Name Start Date Product Form Dose Route Admi nistrative Instructions Pharmacy Instructions Status Indications Reaction Description Data Source(s) No Active Medications 11/12/2020 12:00:00 AM EST active [facility] ([facility]) Prednisone 20 MG Oral Tablet Prednisone 08/26/2020 12:00:00 AM EDT completed [facility] ([facility]) benzonatate 100 MG Oral Capsule Benzonatate 08/26/2020 12:00:00 AM EDT ORAL completed [facility] ([facility]) 60 ACTUAT Albuterol 0.09 MG/ACTUAT Metered Dose Inhaler Albu terol Sulfate HFA 08/26/2020 12:00:00 AM EDT RESPIRATORY completed [facility] ([facility]) doxycycline hyclate 100 MG Oral Capsule Doxycycline Hyclate 08/26/2020 12:00:00 AM EDT completed [facility] ([facility]) Insurance Providers Payer name Policy type / Coverage type Policy ID Covered alliance party ID Covered alliance party's relationship to diaz Policy Diaz Plan Information [employer] [place] P[place] 302/307 [id number] SP [id number] [facility] [id number] SP [id number] [employer] [place] PPO 302/307 [id number] SP [id number] [employer] [place] PPO 302/307 [id number] SP [id number] [employer] [place] PPO 302/307 [id number] SP [id number] [employer] Primary [id number] [employer] Primary [id number] MVP Health Maintenance Organization (HMO) [id number] Self [id number] MVP PI PI MVP [id number] Lexi [id number] [facility] () Workers Compensation [id number] Self [id number] [facility] () Workers Compensation [id number] Self [id number] [facility] O [id number] O [id number] EXCELLUS BCBS B [id number] S [id number] [id number] EXCELLUS H [id number] Self [id number] [facility] O UNAVAILABLE S UNAVAILABLE EXCELLUS BCBS PI PI EXCELLUS BCBS [id number] Lexi VYA [id number] [place] Commercial [id number] Self [id number] Excell[employer] BCBS Health Maintenance Organization (HMO) [id number] Self [id number] EXCELLUS BCBS B [id number] S [id number] [id number] [employer] Health Maintenance Organization (HMO) [id number] Self [id number] [employer] Health Maintenance Organization (HMO) [id number] Self [id number] [employer] [place] PPO 302/307 [id number] SP [id number] BS Of [facility] Health Maintenance Organization (HMO) [id number] Self [id number] [facility] (HMO) [id number] Self [id number] [employer] [place] PPO 302/307 [id number] SP [id number] [employer] [place] PPO 302/307 [id number] SP [id number] PROGRESSIVE CASUALTY [id number] SP [id number] MEDICAID [facility] [id number] SP [id number] BLUE CROSS [id number] SP [id number] MEDICAID [id number] SP [id number] SELF PAY UNAVAILABLE SP UNAVAILA BLE SELF PAY - PENDING UNAVAILABLE UNAVAILABLE MEDICAID [facility] [id number] SP [id number] Results ID Date Data Source [id number] 12/21/2020 11:00:00 AM EST [facility] Name Value Range Interpretation Code Description Data Sunita rce(s) Supporting Document(s) SARS coronavirus 2 [facility]ed [facility] This lab was ordered by [facility] and reported by [facility]. ID Date Data Source [id number] 12/04/2020 12:00:00 AM EST [facility] Name Value Range Interpretation Code Description Data Sunita rce(s) Supporting Document(s) SARS coronavirus 2 Ag Negative [facility] This lab was ordered by [facility] and reported by [facility]. ID Date Data Source [id number] 10/22/2020 12:50:23 PM EST [facility] Name Value Range Interpretation Code Description Data Sunita rce(s) Supporting Document(s) *Follow Up Visit TAYA v1 [facility] [id number] [file] [id number] ID Date Data Source [id number] 10/22/2020 01:33:00 PM EST [facility] CT ABDOMEN AND PELVIS WITH IV CONTRAST I NDICATION: Colon cancer post hemicolectomy and nephrectomy. Assess recurrence.COMPARISON: Most recently 07/13/2019IV CONTRAST: 100 mL Omnipaque 300 One or more of the following dose reduction techniques were utilized in effectively lowering the radiation dose for this examination: Automated Exposure Control, Adjustment of the mA and/or kV according to patient size, or Iterative reconstruction. FINDINGS: LUNG BASES: Minimal left base atelectasis/scar. No pleural effusions. LIVER: Unremarkable liver and gallbladder. SPLEEN: Normal. PANCREAS: Normal. ADRENALS: Normal bilaterally. KIDNEYS/: Centimeter-sized hypodensity projecting from the posterior right mid kidney similar to prior. Left nephrectomy. Grossly normal bladder. Uterus removed. No abnormally enlarged adnexal structures. Resolution of right adnexal cyst since prior. BOWEL/GI: Sigmoid to transverse colon anastomosis. No adjacent mass. Normal appendix. No obstruction, free air, or free fluid. No omental or peritoneal tumor is identified. Broad necked ventral hernias and supraumbilical and umbilical locations with some areas of bowel prolapse. No strangulation. Similar appearance to prior. NODES/RETROPERITONEUM: No adenopathy. SKELETAL: Mild to moderate degenerative disc change. No skeletal metastases. IMPRESSION: Resection changes as noted above. No acute abnormality or significant change. No metastatic disease. Professional interpretation performed at [facility] . Name Value Range Interpretation Code Description Data Sunita rce(s) Supporting Document(s) Procedure Vital Signs ID Date Data Source UNK Name Value Range Interpretation Code Description Data Source(s) Body surface area Derived from formula 2.27 m2 2.27 m2 [facility] ([facility]) Body weight 118.106 kg 118.106 kg [facility] ([facility]) Rector body weight 135 [lb_av] 135 [lb_av] [facility] T ([facility]) Body mass index (BMI) [Ratio] 40.2 kg/m2 40.2 k g/m2 [facility] ([facility]) Body weight 260.38 [lb_av] 260.38 [lb_av] [facility] ([facility]) Body height 67.5 [in_i] 67.5 [in_i] [facility] ([facility]) 5'7.50" Diastolic blood pressure 70 mm[Hg] 70 mm[Hg] [facility] ([facility]) Systolic blood pressure 132 mm[Hg] 132 [facility] Body mass index (BMI) [Ratio] 39.5 kg/m2 39.5 k g/m2 [facility]) Body height 66 [in_i] 66 [in_i] [facility], [facility]) 5'6" Body weight 245.00 [lb_av] 245.00 [lb_av] [facility] T ([facility], [facility]) Body temperature 98.7 [degF] 98.7 [degF] [facility] ([facility], [facility]) Oxygen saturation in Arterial blood by Pulse oximetry 99 % 99 % [facility] ([facility], [facility]) Respiratory rate 16 /min 16 /min [facility] ( [facility], [facility]) Heart rate 78 /min 78 /min [facility] ([facility], [facility]) Diastolic blood pressure 70 mm[Hg] 70 mm[facility]] [facility], [facility]) Systolic blood pressure 145 mm[Hg] 145 mm[Hg] [facility], [facility]) Body mass index (BMI) [Ratio] 39.5 kg/m2 39.5 k g/m2 [facility] ([facility], [facility]) Body height 66 [in_i] 66 [in_i] [facility] ([facility], [facility]) 5'6" Body weight 245.00 [lb_av] 245.00 [lb_av] MED[facility] T ([facility], [facility]) Body temperature 98.7 [degF] 98.7 [degF] [facility]) Oxygen saturation in Arterial blood by Pulse oximetry 97 % 97 % [facility] ([facility], [facility]) Respiratory rate 18 /min 18 /min [facility] ( [facility], [facility]) Heart rate 78 /min 78 /min [facility] ([facility], [facility]) Diastolic blood pressure 90 mm[Hg] 90 mm[facility]] [facility], [facility]) Systolic blood pressure 160 mm[Hg] 160 mm[Hg] [facility], [facility]) Body mass index (BMI) [Ratio] 39.5 kg/m2 39.5 k g/[facility]2 [facility], [facility]) Body height 66 [in_i] 66 [in_i] [facility] ([facility], [facility]) 5'6" Body weight 245.00 [lb_av] 245.00 [lb_av] MEDEN T ([facility], [facility]) Body temperature 98.7 [degF] 98.7 [degF] [facility] ([facility], [facility]) Oxygen saturation in Arterial blood by Pulse oximetry 99 % 99 % [facility] ([facility], [facility]) Respiratory rate 20 /min 20 /min [facility] ( [facility], [facility]) Heart rate 97 /min 97 /min [facility] ([facility], [facility]) Diastolic blood pressure 78 mm[Hg] 78 mm[Hg] [facility] ([facility], [facility]) Systolic blood pressure 130 mm[Hg] 130 mm[facility]Hg] [facility], [facility]) Body mass index (BMI) [Ratio] 40.3 kg/m2 40.3 k g/m2 [facility], [facility]) Body height 66 [in_i] 66 [in_i] [facility]) 5'6" Body weight 250.00 [lb_av] 250.00 [lb_av] MEDEN T ([facility], [facility]) Body temperature 98.7 [degF] 98.7 [degF] [facility] ([facility], [facility]) Oxygen saturation in Arterial blood by Pulse oximetry 96 % 96 % [facility] ([facility], [facility]) Respiratory rate 18 /min 18 /min [facility] ( [facility], [facility]) Heart rate 78 /min 78 /min [facility] ([facility], [facility]) Diastolic blood pressure 100 mm[Hg] 100 mm[Hg] [facility]) Systolic blood pressure 150 mm[Hg] 150 mm[facility]Hg] [facility] [facility] [place]) Body mass index (BMI) [Ratio] 38.7 kg/m2 38.7 k g/m2 [facility] ([facility], [facility]) Body height 66 [in_i] 66 [in_i] [facility] ([facility], [facility]) 5'6" Body weight 240.00 [lb_av] 240.00 [lb_av] [facility] ([facility], [facility] [place] [facility]) Body temperature 98.9 [degF] 98.9 [degF] [facility] ([facility], [facility] [place] [facility]) Oxygen saturation in Arterial blood by Pulse oximetry 95 % 95 % [facility] ([facility], [facility] [place]) Respiratory rate 18 /min 18 /min [facility] ( [facility], [facility] [place]) Heart rate 74 /min 74 /min [facility] ([facility], [facility] [place] [facility]) Diastolic blood pressure 100 mm[Hg] 100 mm[Hg] [facility] ([facility], [facility] [place] [facility]) Systolic blood pressure 152 mm[Hg] 152 mm[Hg] [facility] ([facility], [facility] [place])
[2020-12-25] MEDS ORDERED: LIDOCAINE 2% 100MG/5ML SDV (FOR ANES.) As Ordered ONE (11:00)
[2020-12-25] MEDS ORDERED: propofoL 500 MG/50 ML VIAL As Ordered ONE (11:00)
[2020-12-25] MEDS ORDERED: propofoL 200 MG/20 ML VIAL As Ordered ONE (11:56)
--- NOTE | 2020-12-25 12:03 | ROOR ---
Patient Name: Arash Cheng Procedure Date: 12/25/2020 11:07 AM Date of : 1970 Age: 50 Room: [facility] Gender: Female Note Status: Finalized Procedure: Upper GI endoscopy Indications: Nausea with vomiting Providers: Pb Proctor MD Referring MD: Pb Sanon Md Requesting Provider: Medicines: Monitored Anesthesia Care Complications: No immediate complications. Procedure: Pre-Anesthesia Assessment: - Prior to the procedure, a History and Physical was performed, and patient medications and allergies were reviewed. The patient is competent. The risks and benefits of the procedure and the sedation options and risks were discussed with the patient. All questions were answered and informed consent was obtained. Patient identification and proposed procedure were verified by the physician, the nurse and the lead security officer in the procedure room. Mental Status Examination: alert and oriented. Prophylactic Antibiotics: The patient does not require prophylactic antibiotics. Prior Anticoagulants: The patient has taken no previous anticoagulant or antiplatelet agents. ASA Grade Assessment: II - A patient with mild systemic disease. After reviewing the risks and benefits, the patient was deemed in satisfactory condition to undergo the procedure. The anesthesia plan was to use monitored anesthesia care (MAC). Immediately prior to administration of medications, the patient was re-assessed for adequacy to receive sedatives. The heart rate, respiratory rate, oxygen saturations, blood pressure, adequacy of pulmonary ventilation, and response to care were monitored throughout the procedure. The physical status of the patient was re-assessed after the procedure. The Endoscope was introduced through the mouth, and advanced to the second part of duodenum. The upper GI endoscopy was accomplished without difficulty. The patient tolerated the procedure well. Findings: The examined esophagus was normal. Localized mild inflammation characterized by granularity was found in the prepyloric region of the stomach. The first portion of the duodenum and second portion of the duodenum were normal. Impression: - Normal esophagus. - Acute gastritis. - Normal first portion of the duodenum and second portion of the duodenum. - No specimens collected. Recommendation: - Discharge patient to home. - Resume previous diet. - Continue present medications. Procedure Code(s): --- Professional --- 99296, Esophagogastroduodenoscopy, flexible, transoral; diagnostic, including collection of specimen(s) by brushing or washing, when performed (separate procedure) Diagnosis Code(s): --- Professional --- K29.00, Acute gastritis without bleeding R11.2, Nausea with vomiting, unspecified CPT copyright 2019 [employer]. All rights reserved. The codes documented in this report are preliminary and upon outpatient coder review may be revised to meet current compliance requirements. Pb Proctor MD Pb Proctor MD 12/25/2020 12:03:20 PM Electronically signed by Pb Proctor MD Number of Addenda: 0 Note Initiated On: 12/25/2020 11:07 AM Estimated Blood Loss: Estimated blood loss: none.
--- NOTE | 2020-12-25 12:13 | ROOR ---
Patient Name: Arash Cheng Procedure Date: 12/25/2020 11:08 AM Date of : 1970 Age: 50 Room: [facility] Gender: Female Note Status: Finalized Procedure: Colonoscopy Indications: High risk colon cancer surveillance: Personal history of colon cancer, Last colonoscopy: 2016 Providers: Pb Proctor MD Referring MD: Pb Sanon Md Requesting Provider: Medicines: Monitored Anesthesia Care Complications: No immediate complications. Procedure: Pre-Anesthesia Assessment: - Prior to the procedure, a History and Physical was performed, and patient medications and allergies were reviewed. The patient is competent. The risks and benefits of the procedure and the sedation options and risks were discussed with the patient. All questions were answered and informed consent was obtained. Patient identification and proposed procedure were verified by the physician, the nurse and the rn clinical resource in the procedure room. Mental Status Examination: alert and oriented. Airway Examination: normal oropharyngeal airway and neck mobility. Prophylactic Antibiotics: The patient does not require prophylactic antibiotics. Prior Anticoagulants: The patient has taken no previous anticoagulant or antiplatelet agents. ASA Grade Assessment: II - A patient with mild systemic disease. After reviewing the risks and benefits, the patient was deemed in satisfactory condition to undergo the procedure. The anesthesia plan was to use monitored anesthesia care (MAC). Immediately prior to administration of medications, the patient was re-assessed for adequacy to receive sedatives. The heart rate, respiratory rate, oxygen saturations, blood pressure, adequacy of pulmonary ventilation, and response to care were monitored throughout the procedure. The physical status of the patient was re-assessed after the procedure. The Colonoscope was introduced through the anus and advanced to the cecum, identified by appendiceal orifice and ileocecal valve. The colonoscopy was performed without difficulty. The patient tolerated the procedure well. The quality of the bowel preparation was excellent. Findings: The perianal and digital rectal examinations were normal. There was evidence of a prior functional end-to-end colo-colonic anastomosis in the descending colon. The anastomosis was traversed. A 4 mm polyp was found at 30 cm proximal to the anus. The polyp was sessile. The polyp was removed with a cold snare. Resection and retrieval were complete. A 3 mm polyp was found at 30 cm proximal to the anus. The polyp was sessile. The polyp was removed with a jumbo cold forceps. Resection and retrieval were complete. Impression: - Functional end-to-end colo-colonic anastomosis. - One 4 mm polyp at 30 cm proximal to the anus, removed with a cold snare. Resected and retrieved. - One 3 mm polyp at 30 cm proximal to the anus, removed with a jumbo cold forceps. Resected and retrieved. Recommendation: - Await pathology results. - Discharge patient to home. - Resume previous diet. - Continue present medications. - Return to endoscopist in 2 weeks. Procedure Code(s): --- Professional --- 81463, Colonoscopy, flexible; with removal of tumor(s), polyp(s), or other lesion(s) by snare technique 13623, 59, Colonoscopy, flexible; with biopsy, single or multiple Diagnosis Code(s): --- Professional --- Z85.038, Personal history of other malignant neoplasm of large intestine Z98.0, Intestinal bypass and anastomosis status K63.5, Polyp of colon CPT copyright 2019 [employer]. All rights reserved. The codes documented in this report are preliminary and upon wooden tank erector review may be revised to meet current compliance requirements. Pb Proctor MD Pb Proctor MD 12/25/2020 12:13:14 PM Electronically signed by Pb Proctor MD Number of Addenda: 0 Note Initiated On: 12/25/2020 11:08 AM Estimated Blood Loss: Estimated blood loss was minimal.
[2020-12-25 12:26] VITALS: BP 163/98
== END 2020-12-25 12:30 | disposition home or self-care (01) ==
LOC: M OPP 10:11
PROVIDERS: ATTEND Surgery
DX: Z12.11 Encounter for screening for malignant neoplasm of colon (principal); Z85.038 Personal history of other malignant neoplasm of large intestine; R11.2 Nausea with vomiting, unspecified; K63.5 Polyp of colon; Z98.0 Intestinal bypass and anastomosis status; K29.00 Acute gastritis without bleeding; Z92.21 Personal history of antineoplastic chemotherapy; Z85.528 Personal history of other malignant neoplasm of kidney; F17.210 Nicotine dependence, cigarettes, uncomplicated; Z88.8 Allergy status to other drugs, medicaments and biological substances; Z83.6 Family history of other diseases of the respiratory system

== ENCOUNTER → 2021-06-02 | Outpatient (CLI) | payer BC ==
[~2021-06-02] MED LIST changes: -NS 1,000 ML IV ONE; +OMEP40CA4 PO; -OMEP40CA97 PO
--- NOTE | 2021-06-02 11:40 | REP ---
INDICATION: CONTUSION. COMPARISON: None. TECHNIQUE: Four views of the right foot are provided. FINDINGS: Four views of the right foot demonstrate minimal hallux valgus. Soft tissue swelling is seen at the 1st MTP joint. There is fragmented Achilles calcaneal spurring. No fracture or subluxation is seen. No opaque foreign body is noted.. . IMPRESSION: No fracture seen. Heel spurring. Minimal hallux valgus. Soft tissue swelling at the 1st MTP joint.. <Electronically signed by Jerry Mohr > 06/02/21 [id number]
== END ==
LOC: M WUC 09:18
PROVIDERS: ATTEND Physician Assistant
DX: S90.31XA Contusion of right foot, initial encounter (principal); S90.211A Contusion of right great toe with damage to nail, initial encounter; W18.30XA Fall on same level, unspecified, initial encounter; Y92.009 Unspecified place in unspecified non-institutional (private) residence as the place of occurrence of the external cause

== ENCOUNTER 2023-05-09 12:31 | Emergency (ER) | payer BC ==
[~2023-05-09] VITALS: Ht 170.2 cm; Wt 111.4 kg
[2023-05-09 12:31] VITALS: BP 162/94; TEMP 98.7; O2SAT 97
[~2023-05-09 12:31] MED LIST changes: -PROC10TA4 PO; +PROC10TA5 PO
[2023-05-09 13:57] LABS: BASO # 0.1 10^3/uL (0.0-0.2); BASO % 0.7 % (0.0-1.0); EOS # 0.1 10^3/uL (0.0-0.5); EOS % 1.7 % (0.0-3.0); HEMATOCRIT 44.3 % (36.0-47.0); HEMOGLOBIN 14.7 g/dl (12.0-15.5); LYMPH # 2.4 10^3/uL (1.5-5.0); LYMPH % 34.5 % (24.0-44.0); MEAN CORPUSCULAR HEMOGLOBIN 28.2 pg (27.0-33.0); MEAN CORPUSCULAR HGB CONC 33.2 g/dl (32.0-36.5); MEAN CORPUSCULAR VOLUME 84.9 fl (80.0-96.0); MONO # 0.4 10^3/uL (0.0-0.8); MONO % 5.2 % (2.0-8.0); NEUTROPHILS % 57.8 % (36.0-66.0); RED BLOOD COUNT 5.22 10^6/uL (4.00-5.40); WHITE BLOOD COUNT 6.9 10^3/uL (4.0-10.0)
[2023-05-09 14:17] LABS: LIPASE 43 U/L (12-53)
[2023-05-09 14:19] LABS: ALBUMIN 3.6 G/DL (3.2-5.2); ALKALINE PHOSPHATASE 72 U/L (46-116); ALT/SGPT 17 U/L (7.0-40); AMYLASE 73 U/L (30-118); AST/SGOT 8 U/L (<34); BILIRUBIN,DIRECT < 0.1 MG/DL (<0.4); BILIRUBIN,TOTAL 0.3 MG/DL (0.3-1.2); BLOOD UREA NITROGEN 20 MG/DL (9-23); CALCIUM LEVEL 9.1 MG/DL (8.5-10.1); CARBON DIOXIDE LEVEL 23 MMOL/L (20-31); CHLORIDE LEVEL 108 MMOL/L (98-107); CREATININE FOR GFR 0.87 MG/DL (0.55-1.30); GLOMERULAR FILTRATION RATE > 60.0 (>51); GLUCOSE, FASTING 128 MG/DL (60-100); POTASSIUM SERUM 3.7 MMOL/L (3.5-5.1); SODIUM LEVEL 138 MMOL/L (136-145); TOTAL PROTEIN 6.8 G/DL (5.7-8.2)
== END 2023-05-09 17:14 | disposition left against medical advice (07) ==
LOC: M ED 12:31
DX: Z53.21 Procedure and treatment not carried out due to patient leaving prior to being seen by health care provider (principal)